=== PATIENT | female | born 2000 | race African-American/Black ===

== ENCOUNTER 2021-12-04 03:49 | Emergency (ER) | payer OTHER, SELFPAY ==
[2021-12-04 03:59] VITALS: BP 117/85; PULSE 122; RESP 22; TEMP 36.6; O2SAT 100
--- NOTE | 2021-12-04 04:07 | ED.NAVMDI ---
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 No fevers or chills, cough, diarrhea, no chest pain or difficulty breathing. Related Data Allergies Allergy/AdvReac Type Severity Reaction Status Date / Time No Known Allergies Allergy Verified 12/04/21 04:27 Review of Systems Review of Systems: CONST: No fever. HEENT: No sore throat C/V: No chest pain RESP: No cough GI: Nausea : No dysuria. M/S: No joint pain. SKIN: No rash. NEURO: [Lightheadedness without focal numbness or weakness] PSYCH: [No depression] PMFSH Past Medical History Medical History (Updated 12/04/21 @ 05:36 by Priscilla Camp MD) No pertinent past medical history Social History Social History (Updated 12/04/21 @ 05:36 by Priscilla Camp MD) Smoking status: Never smoker Course Vital Signs Vital signs: Vital Signs Temperature 97.8 F 12/04/21 03:59 Pulse Rate 122 H 12/04/21 03:59 Respiratory Rate 22 H 12/04/21 03:59 Blood Pressure 117/85 12/04/21 03:59 Pulse Oximetry 100 12/04/21 03:59 Oxygen Delivery Room Air 12/04/21 03:59 Temperature 97.8 F 12/04/21 03:59 Pulse Rate 122 H 12/04/21 03:59 Respiratory Rate 22 H 12/04/21 03:59 Blood Pressure 117/85 12/04/21 03:59 Pulse Oximetry 100 12/04/21 03:59 Oxygen Delivery Room Air 12/04/21 03:59 MDM - Nausea/Vomiting/Diarrhea MDM Narrative Medical decision making narrative: 21-year-old female presents with some nausea, vital signs notable for tachycardia initially, on exam patient is well-appearing though somewhat anxious, no abdominal tenderness. I will obtain basic labs to ensure patient is not , anemic, or have any obvious electrolyte abnormality; I suspect possible anxiety-induced / vasovagal reaction versus possible gastroenteritis, doubt any intraabdominal emergency without any abdominal pain or tenderness on exam. Labs notable only for slight leukocytosis, on reevaluation patient is feeling better after IV fluids and Zofran, her heart rate has normalized to 96 on palpation, she is given return precautions and asked to follow-up with her primary care doctor in the next 2 days Lab Data Result diagrams: 12/04/21 04:20 12/04/21 04:20 Labs: Lab Results 12/04/21 12/04/21 Range/Units 04:20 04:20 WBC 11.8 H (4.5-10.0) K/mm3 RBC 5.28 (4.2-5.4) M/mm3 Hgb 12.9 (12.0-15.0) g/dL Hct 39.3 (37.0-47.0) % MCV 74.4 L (80-100) fl MCH 24.4 L (26-34) pg MCHC 32.8 (32-36) g/dl RDW 16.4 H (11.5-14.5) % Plt Count 310 (150-375) k/mm3 MPV 10.2 (7.4-10.4) fl Immature Gran % (Auto) 0.4 (0-0.5) % Neut % (Auto) 65.9 (45.5-73.1) % Lymph % (Auto) 21.7 (18.3-44.2) % [place] % (Auto) 11.0 H (2.6-8.5) % Eos % (Auto) 0.7 (0-4.4) % Baso % (Auto) 0.3 (0.2-1.2) % Lymph # (Auto) 2.57 (0.9-3.2) K/mm3 [place] # (Auto) 1.3 H (0.1-0.6) K/mm3 Eos # (Auto) 0.1 (0-0.3) K/mm3 Baso # (Auto) 0.0 (0.0-0.1) K/mm3 Abs Immat Gran (auto) 0.05 H (0.00-0.031) K/mm3 Absolute Neuts (auto) 7.8 H (1.3-6.7) K/mm3 Absolute Nucleated RBC 0.0 (0.0-0.012) K/mm3 Nucleated RBC % 0.0 (0.0-0.2) % Sodium 139 (137-145) mmol/L Potassium 3.8 (3.4-5.0) mmol/L Chloride 104 (98-107) mmol/L Carbon Dioxide 27 (22-30) mmol/L Anion Gap 8 (8-16) mmo
[2021-12-04 04:28] LABS: Basophils Percent Auto 0.3 % (0.2-1.2); Eosinophils Absolute Auto 0.1 K/mm3 (0-0.3); Eosinophils Percent Auto 0.7 % (0-4.4); Hematocrit 39.3 % (37.0-47.0); Hemoglobin 12.9 g/dL (12.0-15.0); Immature Granulocyte Absolute 0.05 K/mm3 (0.00-0.031); Immature Granulocyte Percent A 0.4 % (0-0.5); Lymphocytes Absolute Auto 2.57 K/mm3 (0.9-3.2); Lymphocytes Percent Auto 21.7 % (18.3-44.2); Mean Corpuscular HGB Conc 32.8 g/dl (32-36); Mean Corpuscular Hemoglobin 24.4 pg (26-34); Mean Corpuscular Volume 74.4 fl (80-100); Mean Platelet Volume 10.2 fl (7.4-10.4); Monocytes Absolute Auto 1.3 K/mm3 (0.1-0.6); Neutrophils Absolute Auto 7.8 K/mm3 (1.3-6.7); Neutrophils Percent Auto 65.9 % (45.5-73.1); Platelet Count Result 310 k/mm3 (150-375); Red Blood Count 5.28 M/mm3 (4.2-5.4); Red Cell Distribution Width 16.4 % (11.5-14.5); White Blood Count 11.8 K/mm3 (4.5-10.0)
[2021-12-04] MEDS: ONDANSETRON INJ 4 MG/2 ML VIAL IV PUSH (04:34)
[2021-12-04] MEDS: LACTATED RINGERS 1,000 ML 999 ML IV CONT (04:34)
[2021-12-04 04:41] LABS: Anion Gap 8 mmol/L (8-16); Blood Urea Nitrogen 8 mg/dL (7-17); Carbon Dioxide 27 mmol/L (22-30); Chloride 104 mmol/L (98-107); Estimated CRCL calculation 86 ml/min; Estimated Glomerular Filt Rate > 60; Glucose 97 mg/dL (65-110); Potassium 3.8 mmol/L (3.4-5.0); Sodium 139 mmol/L (137-145)
[2021-12-04 05:37] VITALS: BP 109/96; PULSE 95; RESP 22; O2SAT 100
== END 2021-12-04 05:38 | disposition home or self-care (01) ==
PROVIDERS: Emergency Provider Emergency Medicine
DX: R11.0 Nausea (principal)
CPT/HCPCS: 36415; 80048; 81025; 85025; 96361; 96374; 99284; J2405; J7120